=== PATIENT | male | born 1960 | race Asian ===

== ENCOUNTER 2017-01-18 02:25 | Emergency (ER) | payer MEDICAID, OTHER ==
[~2017-01-18] VITALS: Ht 160 cm; Wt 72.6 kg
[2017-01-18 02:45] VITALS: BP_SYST 185
== END 2017-01-18 03:03 ==
LOC: SED 02:25
DX: Z02.83 Encounter for blood-alcohol and blood-drug test (principal); R05 Cough; V89.2XXA Person injured in unspecified motor-vehicle accident, traffic, initial encounter; Y93.89 Activity, other specified; Y99.8 Other external cause status; Y92.89 Other specified places as the place of occurrence of the external cause
CPT/HCPCS: 99283